=== PATIENT | female | born 1975 | race Caucasian/White ===

== ENCOUNTER 2023-08-06 09:59 | Emergency (ER) | payer BC, OTHER ==
--- NOTE | 2023-08-06 10:14 | ED Physician Documentation ---
PD HPI FEMALE - Stated complaint Stated Complaint: FEMALE - History obtained from History obtained from: Patient - History of Present Illness Timing - onset: Yesterday Timing - duration: Days (1) Timing - details: Abrupt onset, Still present Associated symptoms: Dysuria, Urinary frequency. No: Fever, Vaginal bleeding, Vaginal discharge, Genital sore/lesion Similar symptoms before: Diagnosis (UTI remotely, many years ago.) Review of Systems Constitutional: denies: Fever, Chills PD PAST MEDICAL HISTORY - Past Medical History Endocrine/Autoimmune: HyPOthyroidism GI: GERD : Incontinence - Past Surgical History Past Surgical History: Yes General: Cholecystectomy - Present Medications Home Medications: Ambulatory Orders Medication Instructions Recorded Confirmed Fexofenadine [Hyun] 180 mg PO DAILY 05/03/13 05/03/13 Levothyroxine Sodium 50 mcg PO DAILY 06/18/15 06/18/15 Oxybutynin Chloride [Ditropan Xl] 15 mg PO DAILY 06/18/15 06/18/15 Pravastatin Sodium 20 mg PO DAILY 06/18/15 06/18/15 Phenazopyridine HCl [Pyridium] 100 mg PO TID PRN #15 tablet 08/06/23 cephALEXin [Keflex] 500 mg PO TID #20 cap 08/06/23 - Allergies Allergies/Adverse Reactions: Allergies Allergy/AdvReac Type Severity Reaction Status Date / Time No Known Drug Allergies Allergy Verified 08/06/23 10:21 - Social History Does the pt smoke?: No Smoking Status: Never smoker Does the pt drink ETOH?: No Does the pt have substance abuse?: No - Immunizations Immunizations are current?: Yes PD ED PE NORMAL - Vitals Vital signs reviewed: Yes - General General: Alert and oriented X 3, No acute distress, Well developed/nourished - Abdomen Abdomen: Normal bowel sounds, Soft, Non tender - Female Female : Deferred - Rectal Rectal: Deferred - Back Back: No CVA TTP Results - Vitals Vitals: Vital Signs - 24 hr 08/06/23 08/06/23 10:17 11:29 Temperature 36.2 C L 36.5 C Heart Rate 76 76 Respiratory 18 16 Rate Blood Pressure 99/72 117/73 O2 Saturation 100 100 Oxygen O2 Source Room air - Labs Labs: Laboratory Tests 08/06/23 08/06/23 10:14 11:16 Urine Color YELLOW Urine Clarity CLEAR Urine pH 7.5 Ur Specific [place] 1.010 Urine Protein NEGATIVE Urine Glucose (UA) NEGATIVE Urine Ketones NEGATIVE Urine Occult Blood NEGATIVE Urine Nitrite NEGATIVE Urine Bilirubin NEGATIVE Urine Urobilinogen 0.2 (NORMAL) Ur Leukocyte Esterase NEGATIVE Ur Microscopic Review NOT INDICATED Urine Culture Comments NOT INDICATED C. glabrata (PCR) NEGATIVE C. krusei (PCR) NEGATIVE Nae species DNA NEGATIVE T. vaginalis (PCR) NEGATIVE Bact Vaginosis (PCR) NEGATIVE PD Medical Decision Making - ED course Complexity details: reviewed results (UA normal. BV screen negative. ), considered differential (symptoms dysuria and frequency c/w UTI. Checked BV screen and subsequently came back negative. Can treat empirically as UTI. Consider interstitial cystitis, but will be doing pyridium and NSAID anyway. ), d/w patient Departure - Departure Disposition: 01 Home, Self Care Clinical Impression: Dysuria Condition: Stable Record reviewed to determine appropriate education?: Yes Instructions: ED Dysuria Uncertain Cause Follow-Up: MICHAEL MOURA, [facility] [Primary Care Provider] - Prescriptions: cephALEXin [Keflex] 500 mg PO TID #20 cap Phenazopyridine HCl [Pyridium] 100 mg PO TID PRN #15 tablet PRN Reason: Abdominal Pain Comments: Your urine sample does not look obviously infected. However it does not have to look infected in the setting of a early bladder infection. It does give pause to consider other reasons. That was the rationale for doing the vaginal swab as symptoms can overlap from a vaginitis. That will result later this afternoon. I will call you if there is any positive. Meanwhile we will treat it as a bladder infection with cephalexin antibiotic and I phenazopyridine for discomfort. Stay well-hydrated. I would anticipate improvement over the next few days. I sent your prescription to [facility] in [place]. Forms: PCP List Discharge Date/Time: 08/06/23 11:30
[2023-08-06 10:30] VITALS: O2SAT 100
[2023-08-06 10:43] LABS: BILIRUBIN,URINE NEGATIVE (NEGATIVE); GLUCOSE, URINE (UA) NEGATIVE (NEGATIVE); KETONES,URINE (UA) NEGATIVE (NEGATIVE); LEUKOCYTE ESTERASE, URINE NEGATIVE (NEGATIVE); NITRITE,URINE NEGATIVE (NEGATIVE); OCCULT BLOOD,URINE NEGATIVE (NEGATIVE); PH,URINE 7.5 PH (5.0-7.5); PROTEIN,URINE NEGATIVE (NEGATIVE); UROBILINOGEN,URINE 0.2 (NORMAL) E.U./dL (NORMAL)
[2023-08-06 10:45] LABS: CLARITY,URINE CLEAR (CLEAR)
[2023-08-06] MEDS: PHENAZOPYRIDINE 100 MG TABLET PO STA (11:13)
[2023-08-06] MEDS: cephALEXin 250 MG CAPSULE PO STA (11:13)
[2023-08-06 11:35] VITALS: BP 117/73
[2023-08-06 13:04] LABS: BACTERIAL VAGINOSIS DNA NEGATIVE (NEGATIVE); CANDIDA GLABRATA DNA NEGATIVE (NEGATIVE); CANDIDA GROUP DNA NEGATIVE (NEGATIVE); CANDIDA KRUSEI DNA NEGATIVE (NEGATIVE); TRICHOMONAS VAGINALIS DNA NEGATIVE (NEGATIVE)
== END 2023-08-06 11:30 | disposition home or self-care (01) ==
LOC: ED 09:59
DX: R30.0 Dysuria (principal); R35.0 Frequency of micturition
CPT/HCPCS: 36415; 81003; 81514; 99283; A9270; 81001; 87086

== ENCOUNTER 2023-08-11 20:46 | Outpatient (CLI) | payer OTHER ==
--- NOTE | 2023-08-12 10:56 | Ultrasound Report ---
PROCEDURE: Pelvic w/Transvaginal INDICATIONS: PELVIC PAIN, recent dysmenorrhea, family history of uterine cancer TECHNIQUE: Real-time scanning was performed of the pelvic organs, with image documentation. Additional endovagi nal scanning was necessary due to incomplete visualization of the adnexal and endometrial structures by transabdominal scanning. COMPARISON: Pelvic ultrasound 07/07/2015 FINDINGS: Uterus: Uterus is retroverted and normal in size at 5.8 x 3.6 x 4.3 cm. The myometrium is heterogen eous. The endometrium measures 7 mm in combined thickness. 5 mm hyperechoic focus is seen deep to t he endometrium at the right uterine fundus. Ovaries: The right ovary measures 2.7 x 2.5 x 1.7 cm, with a calculated ovarian volume of 6 cc. Left ovary is not well-visualized separate from a 5.3 x 4.9 x 6.1 cm physiologic cyst with smaller daught er cyst. Additional simple ovarian or paraovarian cyst measures up to 1.6 cm. Free fluid is seen in t he left adnexa. IMPRESSION: 1.Left adnexal 6.1 cm cyst with daughter cyst, presumably arising from the left ovary although the ov cynthia tissue is not well-visualized. Recommend correlation with clinical findings especially if there is any concern for ovarian torsion or intermittent torsion/detorsion setting of pelvic pain. Additio bright, follow-up ultrasound is recommended in 6-12 weeks for further evaluation. 2.Small nonspecific free fluid in the left adnexa. 3.Hyperechoic 5 mm subendometrial lesion in the right uterine fundus is of uncertain etiology. Recomm end attention on follow-up ultrasound versus further characterization with contrast-enhanced pelvic M RI. Reviewed by: Hernandez Peguero MD on 08/12/2023 10:54 AM PDT Approved by: Hernandez Peguero MD on 08/12/2023 10:54 AM PDT Station ID: [id number]
== END 2023-08-11 20:47 | disposition home or self-care (01) ==
LOC: DI 20:46
PROVIDERS: ATTEND Family Medicine
DX: R10.2 Pelvic and perineal pain (principal); N91.2 Amenorrhea, unspecified; R10.32 Left lower quadrant pain; N94.89 Other specified conditions associated with female genital organs and menstrual cycle; N85.9 Noninflammatory disorder of uterus, unspecified; Z80.49 Family history of malignant neoplasm of other genital organs

== ENCOUNTER 2023-09-23 15:07 | Outpatient (CLI) | payer OTHER ==
--- NOTE | 2023-09-26 12:13 | Ultrasound Report ---
PROCEDURE: Pelvic w/Transvaginal INDICATIONS: OVARIAN CYST TECHNIQUE: Transabdominal/transvaginal ultrasound of the pelvis was obtained. Endovaginal scanning wa s necessary due to incomplete visualization of the adnexal and endometrial structures by transabdomin al scanning. COMPARISON: 08/11/2023 FINDINGS: Uterine size: Uterus measures 6.5 x 3.5 x 3.7 cm, and is retroverted. Myometrium: The myometrium is homogeneous. Endometrium: The endometrium measures 3 mm in combined thickness. 2 3 mm echogenic focus in the junc tional zone is slightly smaller, previously 5 mm. Additional 3 mm echogenicity in the junctional zone noted as well. Right ovary: The right ovary measures 3.1 x 1.8 x 1.8 cm. Calculated ovarian volume 3.5 cc. Small ovarian cysts measuring up to 1.1 cm. Left ovary: The left ovary measures 2.6 x 1.3 x 2.7 cm. Calculated ovarian volume 4.7 cc. Free flui d noted in the left adnexa. Small ovarian cysts at 2.4 cm. Previously described 6.1 cm cyst has resol lissy Other: No pathologic free abdominal or pelvic fluid. IMPRESSION: Normal-appearing ovaries. Large left adnexal cyst has resolved. Echogenic foci in the uterine junctional zone. Primary differential adenomyosis. Consider follow-up M RI. Reviewed by: Claudy Rodgers MD on 09/26/2023 11:12 AM PATY Approved by: Claudy Rodgers MD on 09/26/2023 11:12 AM PATY Station ID: [id number]
== END 2023-09-23 15:08 | disposition home or self-care (01) ==
LOC: DI 15:07
PROVIDERS: ATTEND Family Medicine
DX: N94.89 Other specified conditions associated with female genital organs and menstrual cycle (principal); R93.89 Abnormal findings on diagnostic imaging of other specified body structures

== ENCOUNTER 2023-11-03 08:35 | Outpatient (CLI) | payer OTHER ==
[~2023-11-03 08:35] MED LIST: GADOTERATE MEGLUMINE 10 MMOL/20 ML VIAL ONE
[2023-11-03] MEDS: GADOTERATE MEGLUMINE 10 MMOL/20 ML VIAL IVP ONE (09:41)
--- NOTE | 2023-11-03 16:26 | MRI Report ---
PROCEDURE: Pelvis W/WO INDICATIONS: OVARIAN MASS CONTRAST: CLARISCAN 16.8 ML TECHNIQUE: Coronal ultra fast SE, sagittal breath-hold T2 FSE; axial T1 FSE with and without fat saturation thro ugh the pelvis. Optional long- and short-axis uterine nonbreath-hold T2 FSE through the uterus. Sag ittal or axial dynamic ultra fast GE during administration of contrast. Post-contrast axial or coron al ultra fast GE / 2-D spoiled GE with fat saturation from the iliac crests to the symphysis. Option al diffusion weighted imaging and ADC may be performed. COMPARISON: Pelvic ultrasound 09/23/2023, 08/11/2023. FINDINGS: Image quality: Excellent. Uterus: Uterus is retroverted and normal in size measuring 5.8 cm. Endometrium is normal in thickne ss measuring 4 mm. Junctional zone is normal in thickness at 12 mm or less. No fibroids seen. Adnexa: Both ovaries are normal in size, without suspicious cystic or solid lesions. Small T2 hyperi ntense ovarian follicles. Small right ovarian mentions a T1 hyperintense cyst measuring 0.6 cm, (5/18 ). Mild T2 hyperintense signal. No T2 shading appreciated. There is restricted diffusion. Urinary system: Bladder wall is normal in thickness. Distal ureters are non distended. Urethra ariela ears normal in morphology. Nodes and vessels: No pelvic or inguinal adenopathy by size criteria. Iliac vessels are normal in s ize. Bowel and peritoneum: No pathologic free pelvic fluid. Trace fluid in the pelvic cul-de-sac. Inferi or colon and small bowel loops are normal in caliber. Soft tissues: No inguinal hernias. No findings of pelvic floor incompetence in the absence of provo cation. Bones: Marrow demonstrates normal overall signal. IMPRESSION: 1. No uterine adenomyosis demonstrated. 2. Endometrium measures 4 mm. No fibroids seen. 3. Right ovarian intrinsic T1 hyperintense cyst measuring 0.6 cm. This could represent a small endome trioma or hemorrhagic cyst. Reviewed by: Alexandru Gottlieb MD on 11/03/2023 4:25 PM PDT Approved by: Alexandru Gottlieb MD on 11/03/2023 4:25 PM PDT Station ID: [id number]
== END 2023-11-03 08:36 | disposition home or self-care (01) ==
LOC: DI 08:35
PROVIDERS: ATTEND Physician Assistant
DX: N83.291 Other ovarian cyst, right side (principal)
CPT/HCPCS: 72197; A9575

== ENCOUNTER 2023-11-08 17:10 | Outpatient (CLI) | payer OTHER ==
[2023-11-08 18:03] LABS: BILIRUBIN,URINE NEGATIVE (NEGATIVE); GLUCOSE, URINE (UA) NEGATIVE (NEGATIVE); KETONES,URINE (UA) NEGATIVE (NEGATIVE); LEUKOCYTE ESTERASE, URINE NEGATIVE (NEGATIVE); NITRITE,URINE NEGATIVE (NEGATIVE); OCCULT BLOOD,URINE NEGATIVE (NEGATIVE); PH,URINE 6.5 PH (5.0-7.5); PROTEIN,URINE NEGATIVE (NEGATIVE); UROBILINOGEN,URINE 0.2 (NORMAL) E.U./dL (NORMAL)
[2023-11-08 18:33] LABS: BACTERIA,URINE None Seen /HPF (None Seen); CLARITY,URINE CLEAR (CLEAR); RBC,URINE 0-5 /HPF (0-5); SQUAMOUS EPITHELIAL CELL,UR RARE Squamous (<= Few); WBC,URINE 0-3 /HPF (0-5)
== END 2023-11-08 17:11 | disposition home or self-care (01) ==
LOC: LAB.WC 17:10
PROVIDERS: ATTEND Obstetrics & Gynecology
DX: N32.81 Overactive bladder (principal)
CPT/HCPCS: 81001; 87086